=== PATIENT | female | born 1995 | race Caucasian/White ===

== ENCOUNTER 2016-09-04 20:29 | Emergency (ER) | payer OTHER, BC ==
[~2016-09-04 20:29] MED LIST: ADDERALL XR 2020 MG PO; AMBIEN5 M1 PO; ATIVAN0.5 M1 PO; CALCIUM600 M1 PO; CLARITIN-D 241 EACH PO; FISH OIL 11000 MG/CA PO; LAMICTAL150 M1 PO; MULTIVITAMINS1 EAC6 PO; NASONEX17 G1; PROTONIX40 M2 PO; RITALIN5 M1 PO; SUDOGEST60 MG/TAB PO; VIIBRYD10 M1 PO; ZITHROMAX250 M1 PO
[2016-09-04] MEDS ORDERED: PHENERGAN12.5 M2 PO (21:17)
== END 2016-09-04 21:28 ==
LOC: EDMED 20:29
PROC: 0HQ0XZZ Repair Scalp Skin, External Approach (ICD-10-PCS; principal; 2016-09-04)
DX: S01.01XA Laceration without foreign body of scalp, initial encounter (principal); W22.8XXA Striking against or struck by other objects, initial encounter; Y92.009 Unspecified place in unspecified non-institutional (private) residence as the place of occurrence of the external cause